=== PATIENT | male | born 2000 | race African-American/Black ===

== ENCOUNTER 2019-09-26 13:43 | Emergency (ER) | payer SELFPAY ==
[~2019-09-26] VITALS: Ht 185.4 cm; Wt 95.3 kg
[2019-09-26] MEDS ORDERED: HYDROcodone/Acetamin 7.5/325 tab ORAL ONE (14:00)
[2019-09-26] MEDS ORDERED: HYDROcodone/Acetamin 7.5/325 tab ONE (14:02)
--- NOTE | 2019-09-26 15:03 | Emergency Room Report ---
History of Present Illness General Chief Complaint: Upper Extremity Injury Source: Patient Present Illness HPI 19-year-old male presents to the emergency department complaining of 9 out of 10 severity localized right elbow pain with swelling and tenderness as well as bruising since yesterday night. Patient reports he was riding a mechanical bull and fell. Patient states that when he fell part of the ball struck his right elbow. Patient reports pain with attempts to flex the right arm he reports he is able to very slowly extend. Patient denies being struck in the head or having a loss of consciousness. Patient denies midline neck or back pain. Denies numbness tingling or loss of sensation or gross motor movements of the extremities, incontinence of bowel or bladder. Denies CP, Palpitations, LOC, AMS, dizziness, Changes in Vision, weakness or a sudden severe headache. The patient reports pain [id number]. Allergies: Coded Allergies: No Known Allergies (Unverified , 09/26/19) COVID-19 Screening Contact w/high risk pt: No Experienced COVID-19 symptoms?: No COVID-19 Testing performed LEAN LEADER: No Patient History Past Medical History: see triage record Past Surgical History: none Pertinent Family History: none Reviewed Nursing Documentation: PMH: Agreed; PSxH: Agreed Nursing Documentation-PMH Past Medical History: No Stated History Review of Systems All Other Systems: negative except mentioned in HPI Physical Exam Vital Signs Date Time Temp Pulse Resp B/P (MAP) Pulse Ox O2 Delivery O2 Flow Rate FiO2 09/26/19 13:50 97.5 62 14 133/76 (95) 97 Room Air Sp02 EP Interpretation: reviewed, normal General Appearance: no apparent distress, alert, GCS 15, non-toxic Head: normocephalic, atraumatic Eyes: bilateral eye normal inspection, bilateral eye PERRL ENT: hearing grossly normal, normal voice Neck: full range of motion, no bony tend Respiratory: lungs clear, normal breath sounds, speaking full sentences Cardiovascular #1: regular rate, rhythm, normal capillary refill Cardiovascular #2: 2+ radial (R), 2+ radial (L) Musculoskeletal: normal range of motion, gait/station normal, tender - lateral aspect of the right elbow, swelling - lateral aspect of the right elbow Neurologic: alert, motor strength/tone normal, oriented x3, sensory intact, responsive, speech normal, other - NVI right hand Psychiatric: judgement/insight normal Skin: Ecchymosis/Bruising - lateral aspect of the right elbow Medical Decision Making PA Attestation Dr. Wade is my supervising Physician whom patient management has been discussed with. Diagnostic Impression: Primary Impression: Contusion of elbow, right Qualified Codes: S50.01XA - Contusion of right elbow, initial encounter Additional Impression: Sprain of elbow, right Qualified Codes: S53.401A - Unspecified sprain of right elbow, initial encounter ER Course 19-year-old male presents to the emergency department complaining of 9 out of 10 severity localized right elbow pain with swelling and tenderness as well as bruising since yesterday night. Patient reports he was riding a mechanical bull and fell. Patient states that when he fell part of the ball struck his right elbow. Patient reports pain with attempts to flex the right arm he reports he is able to very slowly extend. Patient denies being struck in the head or having a loss of consciousness. Patient denies midline neck or back pain. Denies numbness tingling or loss of sensation or gross motor movements of the extremities, incontinence of bowel or bladder. Denies CP, Palpitations, LOC, AMS, dizziness, Changes in Vision, weakness or a sudden severe headache. The patient reports pain [id number]. Ddx considered but are not limited to Fracture, dislocation, contusion, Sprain/ Strain/Spasm. Vital signs: are WNL, pt. is afebrile H&PE are most consistent with musculoskeletal injury will perform imaging to r/ o fractures/dislocations. ORDERS: - X-ray Right elbow - negative for fx, Dislocation, or significant soft tissue injury, per preliminary read in ED, and signed by JAMES Cervantes, my supervising physician has reviewed, and agrees with my interpretation. ED INTERVENTIONS: - [place] 7.5 PO Right short arm posterior splint applied by RN. Pt. remains neurovascularly intact. - Right arm Sling applied by clinical laboratory technician. Pt. remains neurovascularly intact. DISCHARGE: At this time pt. is stable for d/c to home. Will provide printed patient care instructions, and any necessary prescriptions. Care plan and follow up instructions have been discussed with the patient prior to discharge. Other X-Ray Diagnostic Results Other X-Ray Diagnostic Results : X-Ray ordered: Right elbow # of Views/Limited Vs Complete: 3 View Indication: Pain EP Interpretation: Yes PA Xray: Interpretation reviewed, by supervising MD, and agrees with findings. Interpretation: no dislocation, no soft tissue swelling, no fractures Impression: No acute disease Electronically Signed by: Nevin Cervantes PA-C Last Vital Signs Date Time Temp Pulse Resp B/P (MAP) Pulse Ox O2 Delivery O2 Flow Rate FiO2 09/26/19 13:50 97.5 62 14 133/76 (95) 97 Room Air Status: improved Disposition: HOME, SELF-CARE Condition: Stable Scripts Ibuprofen* (MOTRIN*) 600 Mg Tablet 600 MG ORAL THREE TIMES A DAY, #30 TAB Prov: Nevin Cervantes 09/26/19 Referrals: NOT CHOSEN IPA/MD,REFERRING (PCP) [facility] Patient Instructions: Elbow Contusion Additional Instructions: Take medications as directed. Follow up with an HOUSE RN in 3-5 days, even if your symptoms have resolved. If symptoms persist MRI may be required at the discretion of your PCP or Ortho Specialist. --Please review list of primary care clinics, if you do not already have a primary care provider who can give you an Orthopedic Referral. Return sooner to ED if new symptoms occur, or current symptoms become worse. - Please note that this Emergency Department Report was dictated using [employer]to[employer] cutter technology software, occasionally this can lead to erroneous entry secondary to interpretation by the dictation equipment. Nevin Cervantes Sep 26, 2019 15:03
[2019-09-26] MEDS ORDERED: IBUPROFEN600 M1 ORAL (15:04)
[2019-09-26 15:16] VITALS: BP 117/72
--- NOTE | 2019-09-26 15:17 | Diagnostic Imaging Report ---
Indications:Pain, trauma Technique: Three or 4 views of the right elbow Comparison: None Findings: No acute fractures. No dislocations. No definite effusion. Joint spaces are preserved Impression: Negative
== END 2019-09-26 15:15 | disposition home or self-care (01) ==
LOC: EMR 14:14
DX: S53.401A Unspecified sprain of right elbow, initial encounter (principal); S50.01XA Contusion of right elbow, initial encounter; W19.XXXA Unspecified fall, initial encounter; Y92.9 Unspecified place or not applicable
CPT/HCPCS: 29125; 99283